=== PATIENT | female | born 1995 | race Caucasian/White ===

== ENCOUNTER 2017-04-03 10:55 | Emergency (ER) | payer SELFPAY ==
[~2017-04-03] VITALS: Ht 160 cm; Wt 74.8 kg
--- NOTE | 2017-04-03 11:08 | PHYS DOC ---
Adult General Chief Complaint Chief Complaint: KNEE INJURY [facility] HPI Patient is a 21 year old female presents to the ED complaining of knee injury x 1 day. Wrestling with her boyfriend and she twisted her knee. Pain to left knee. Sharp, Rates 7/10. Able to ambulate. Denies fever, inability to walk, shortness of breath, fever or syncope. Review of Systems Review of Systems Constitutional: Denies fever or chills [] Eyes: Denies change in visual acuity, redness, or eye pain [] HENT: Denies nasal congestion or sore throat [] Respiratory: Denies cough or shortness of breath [] Cardiovascular: No additional information not addressed in HPI [] GI: Denies abdominal pain, nausea, vomiting, bloody stools or diarrhea [] : Denies dysuria or hematuria [] Musculoskeletal: Denies back pain. Complains of knee pain. [] Integument: Denies rash or skin lesions [] Neurologic: Denies headache, focal weakness or sensory changes [] Endocrine: Denies polyuria or polydipsia [] Allergies Allergies Allergies Coded Allergies Type Severity Reaction Last Updated Verified No Known Drug Allergies 04/03/17 No Physical Exam Physical Exam Constitutional: Well developed, well nourished, no acute distress, non-toxic appearance. [] HENT: Normocephalic, atraumatic, bilateral external ears normal, oropharynx moist, no oral exudates, nose normal. [] Eyes: PERRLA, EOMI, conjunctiva normal, no discharge. [] Neck: Normal range of motion, no tenderness, supple, no stridor. [] Cardiovascular:Heart rate regular rhythm, no murmur [] Lungs & Thorax: Bilateral breath sounds clear to auscultation [] Abdomen: Bowel sounds normal, soft, no tenderness, no masses, no pulsatile masses. [] Skin: Warm, dry, no erythema, no rash. [] Back: No tenderness, no CVA tenderness. [] Extremities: MILD MEDIAL KNEE TENDERNESS no cyanosis, no clubbing, ROM intact, no edema. [] Neurologic: Alert and oriented X 3, normal motor function, normal sensory function, no focal deficits noted. [] Psychologic: Affect normal, judgement normal, mood normal. [] Current Patient Data Vital Signs Vital Signs Date Time Temp Pulse Resp B/P (MAP) Pulse Ox O2 Delivery O2 Flow Rate FiO2 04/03/17 12:34 83 16 128/71 (90) 98 Room Air 04/03/17 11:02 98.2 98.2 Lab Values Laboratory Tests Test 04/03/17 11:10 04/03/17 11:14 Urine Test Negative (NEG) POC Urine HCG, Qualitative Hcg negative (Negative) EKG EKG [] Radiology/Procedures Radiology/Procedures PROCEDURE: KNEE LEFT 3V Indication injury, pain. AP oblique and lateral views of the left knee were obtained. No bony abnormality is seen[] Course & Med Decision Making Course & Med Decision Making Pertinent Labs and Imaging studies reviewed. (See chart for details) []Discussed imaging findings with patient. Patient's pain improved. Knee immobilizer placed. Crutches given. Neurovascular intact post placement. Vitals stable, no acute distress. Discussed follow-up with orthopedics for evaluation and possible MRI. Discussed reasons to return to the ED. Patient understands and agrees with plan. Dragon Disclaimer Dragon Disclaimer This electronic medical record was generated, in whole or in part, using a voice recognition dictation system. Departure Departure Impression: Primary Impression: Knee joint injury Disposition: HOME, SELF-CARE Condition: STABLE Referrals: FRANCE RUFFIN (PCP) Patient Instructions: Knee - Ligament Injury, Arthroscopy, Knee - Meniscus Injury, Arthroscopy, Care After MARKOS VAZQUEZ Apr 03, 2017 11:08
[2017-04-03 11:28] LABS: NEG OBC UR NEG; POS OBC UR POS
--- NOTE | 2017-04-03 11:42 | RAD ---
Indication injury, pain. AP oblique and lateral views of the left knee were obtained. No bony abnormality is seen
[2017-04-03 12:34] VITALS: BP 128/71
== END 2017-04-03 12:34 | disposition home or self-care (01) ==
LOC: ER 10:55
DX: S89.92XA Unspecified injury of left lower leg, initial encounter (principal); X50.1XXA Overexertion from prolonged static or awkward postures, initial encounter; Y93.72 Activity, wrestling; Y92.89 Other specified places as the place of occurrence of the external cause; Y99.8 Other external cause status
CPT/HCPCS: 29505; 73562; 81025; 84703; 99285-25

== ENCOUNTER → 2017-07-06 | Outpatient (CLI) | payer SELFPAY ==
--- NOTE | 2017-07-06 15:22 | RAD ---
Indication: Right breast lump. No prior studies are available for comparison. Sonographic interrogation of the area of palpable lump in the right breast was performed. This corresponds to the 12:00 location. There are 2 adjacent cysts at this location. The more cephalic cyst measures 8 mm x 10 mm x 5 mm. Adjacent and inferior to this cyst is a 12 mm x 11 mm x 4 mm cyst. No internal vascularity is seen. Impression: Simple cysts at the 12:00 location of the right breast accounting for the palpable abnormality. BI-RADS Category 2: Benign findings.
== END | disposition home or self-care (01) ==
LOC: US 14:38
PROVIDERS: ATTEND Physician Assistant Surgical
DX: N63.12 Unspecified lump in the right breast, upper inner quadrant (principal); N60.01 Solitary cyst of right breast
CPT/HCPCS: 76641